=== PATIENT | female | born 1965 | race Asian ===

== ENCOUNTER 2023-07-30 11:36 | Outpatient (CLI) | payer OTHER ==
[2023-07-30 12:06] LABS: PLATELET COUNT 392 K/uL (152-353)
[2023-07-30 12:13] LABS: POTASSIUM 3.7 mmol/L (3.6-5.2)
== END 2023-07-30 19:21 | disposition home or self-care (01) ==
LOC: LABW 11:36
PROVIDERS: ATTEND Physician Assistant Medical
DX: I10 Essential (primary) hypertension (principal); R73.01 Impaired fasting glucose; D50.8 Other iron deficiency anemias
CPT/HCPCS: 80053; 81002; 83036; 83540; 85027